=== PATIENT | female | born 1980 | race Caucasian/White ===

== ENCOUNTER 2021-01-01 23:39 | Emergency (ER) | payer OTHER, SELFPAY ==
[2021-01-01 23:39] VITALS: BP 136/105; PULSE 78; RESP 18; TEMP 36.8; O2SAT 97
[2021-01-02] MEDS: LIDO 1%/EPINEPHRINE 1:100,000 20 ML VIAL 3 ML INFILTRATE (00:10)
[2021-01-02] MEDS: TETANUS,DIPHTHERIA,AC PERTUSSIS ADULT 0.5 ML (ADACEL) (00:33)
[2021-01-02] MEDS: NEOMYCIN/POLYMYXIN/BACITRACIN OINTMENT PACKET 1 PACKET TOPICAL (00:35)
--- NOTE | 2021-01-02 00:38 | ED.WOUNDLAC ---
HPI - Wound/Laceration General Chief Complaint: Wound/Laceration Stated Complaint: Eye laceration Source: patient Mode of arrival: ambulatory Limitations: no limitations History of Present Illness HPI narrative: This young woman comes in after a fall at home. She has a laceration to her left upper eyelid 3cm long on the upper and lateral part of the eyelid. This happened just prior to arrival, she says from a fall. She denies loss of consciousness. Bleeding was initially severe from the wound, but brief, stopping relatively quickly after 5 minutes. Direct pressure helped stop the bleeding. She admits to some alcohol before the fall. No other signs or symptoms. Onset (ago): minute(s) Place: home Patient tetanus UTD: No Context: accidental Associated symptoms: none Related Data Home Medications Medication Instructions Recorded Confirmed citalopram 40 mg PO DAILY 01/02/21 01/02/21 Allergies Allergy/AdvReac Type Severity Reaction Status Date / Time No Known Allergies Allergy Verified 01/02/21 00:17 Review of Systems Constitutional: Constitutional: Reports no additional constitutional complaints Eyes: Eyes: Reports no additional eye complaints ENT: Reports system reviewed and no additional complaints, except as documented Cardiovascular: Cardiovascular: Reports no additional cardiovascular complaints Respiratory: Respiratory: Reports no additional respiratory complaints Gastrointestinal: Gastrointestinal: Reports no additional gastrointestinal complaints Genitourinary: Genitourinary: Reports no additional female genitourinary complaints Musculoskeletal: Musculoskeletal: Reports no additional musculoskeletal complaints Integumentary/Breasts: Skin/Breast: Reports system reviewed and no additional complaints, except as docu Neurologic: Reports system reviewed and no additional complaints, except as documented Psychiatric: Psychiatric: Reports no additional psychiatric complaints Endocrine: Endocrine: Reports no additional endocrine complaints Hematologic/Lymphatic: Hematologic/Lymphatic: Reports no additional hematologic/lymphatic complaints Allergic/Immunologic: Allergic/Immunologic: Reports no additional allergic/immunologic complaints [facility] Past Medical History Medical History (Updated 01/02/21 @ 02:13 by Rogerio Geronimo MD) Depression Surgical History Surgical History (Updated 01/02/21 @ 02:13 by Rogerio Geronimo MD) No significant past surgical history Family History Family History (Updated 01/02/21 @ 02:14 by Rogerio Geronimo MD) Other Family history non-contributory Social History Social History (Updated 01/02/21 @ 02:15 by Rogerio Geronimo MD) Smoking status: Current some day smoker Tobacco type: cigarettes Additional smoking assessment comments: minimal smoking when out with friends Alcohol intake: current Alcohol use details: minimal use when out with friends Living arrangements: with family Additional occupation/education comments: Nurse Gender identity (if verbalized by the patient): Female Sexual Orientation (if Verbalized by the Patient): Straight or Heterosexual Exam Const: General: no acute distress Orientation/consciousness: patient oriented x3 HENMT: Head: normal to inspection Eyes: Conjunctivae: conjunctivae normal Neck: Neck: normal visual inspection Chest: Chest palpation & inspection: normal inspection of the chest Resp: Effort & Inspection: normal respiratory effort Auscultation: clear to auscultation bilaterally Cardio: Rate: regular rate Rhythm: regular rhythm GI: GI Palp: Yes Soft to palpation (nontender) Skin: General skin exam: normal color Other: laceration to left lateral upper eyelid 3cm long. Wound was cleansed. Wound was infiltrated at edges with lidocaine 1% with epinephrine. Following this wound was closed with 7 4-0 nylon sutures with good approximation. Neuro: General: patient oriented x3 and moves
[2021-01-02 00:48] VITALS: BP 136/105
== END 2021-01-02 00:56 | disposition home or self-care (01) ==
PROVIDERS: Emergency Provider Emergency Medicine
DX: S01.112A Laceration without foreign body of left eyelid and periocular area, initial encounter (principal); W19.XXXA Unspecified fall, initial encounter
CPT/HCPCS: 90471; 90715; 99283

== ENCOUNTER 2021-10-20 00:56 | Emergency (ER) | payer OTHER, SELFPAY ==
[2021-10-20 01:00] VITALS: PULSE 90; RESP 20; TEMP 36.6; O2SAT 98
--- NOTE | 2021-10-20 01:06 | ED.WOUNDLAC ---
HPI - Wound/Laceration General Chief Complaint: Wound/Laceration Stated Complaint: FINGER INJURY Source: patient Mode of arrival: ambulatory Limitations: no limitations History of Present Illness HPI narrative: this is a 41-year-old female that presents after she picked up a razor and inadvertently cut her left index finger the distal tip causing an avulsion of her distal left finger tip, the patient did apply a bandage try to stop the bleeding but the bleeding was pretty perfuse. Otherwise she complains of a pain level that is about 8/10 with no numbness or tingling has good movement in her fingers. Onset (ago): hour(s) Extremity Location: Left: hand ( in avulsion of left index finger the distal tip) Place: home Patient tetanus UTD: Yes Context: accidental Associated symptoms: pain Related Data Home Medications Medication Instructions Recorded Confirmed citalopram 40 mg PO DAILY 01/02/21 10/20/21 Allergies Allergy/AdvReac Type Severity Reaction Status Date / Time No Known Allergies Allergy Verified 01/02/21 00:17 Review of Systems Review of Systems: All systems reviewed & are unremarkable except as noted in HPI and below PMFSH Past Medical History Medical History Depression Surgical History Surgical History No significant past surgical history Family History Family History Other Family history non-contributory Social History Social History Smoking status: Current some day smoker Tobacco type: cigarettes Additional smoking assessment comments: minimal smoking when out with friends Alcohol intake: current Alcohol use details: minimal use when out with friends Additional occupation/education comments: Nurse Gender identity (if verbalized by the patient): Female Sexual Orientation (if Verbalized by the Patient): Straight or Heterosexual Exam Const: General: no acute distress Orientation/consciousness: patient oriented x3 HENMT: Head: normal to inspection Eyes: Conjunctivae: conjunctivae normal Pupils: Equal, round and reactive pupils present Neck: Neck: normal visual inspection Chest: Chest palpation & inspection: normal inspection of the chest Cardio: Rate: regular rate Rhythm: regular rhythm GI: GI Palp: Yes Soft to palpation Percussion: Yes normal to percussion Urinary Catheter: Urinary Catheter: patent and draining Skin: General skin exam: normal color Other: Distal left index finger avulsion injury Neuro: General: patient oriented x3 Extrem: General: normal to inspection and no pedal edema Psych: Mental Status: mental status grossly normal Course Course Emergency Course: tourniquet was placed on the left index finger and wrapped with Surgicel that stop the bleeding, the patient complains intense pain and will use 1% lidocaine to block the nerve in the left index finger. Procedures Nerve Block Nerve Block 1: Nerve block date: 10/20/21 Time out performed: Yes Local Anesthetic: lidocaine 1% Amount of anesthesia used (mL): 5 Side: left Nerve Blocks: digital Intraoral Nerve Block: supraperiosteal Procedure Successful: Yes Patient Tolerated Procedure: well Complications: none Critical Care Time Critical Care Time Critical Care Time: No Discharge Plan Discharge Clinical Impression: Skin avulsion Patient Disposition: Home, Self-Care Condition: Stable Instructions: Antibiotic Form, Skin Avulsion (ED) Additional Instructions: Take medicine as prescribed and follow-up primary care physician if symptoms persist or worsen. change dressing every 48hours. Prescriptions: New tramadol [Ultram] 50 mg tablet 50 mg PO Q6H PRN (Reason: pain) Qty: 14 RF:
[2021-10-20 01:40] VITALS: PULSE 88; RESP 18; TEMP 36.6; O2SAT 100
[2021-10-20] MEDS: LIDOCAINE HCL 1% LOCAL INJ 20 ML VIAL (01:44)
--- NOTE | 2021-10-20 01:45 | PC.NURSE ---
0100 area cleaned soap and water. surgicel applied area would not stop bleeding. 0133 pressure dressing and splint applied (splint to keep from bumping). good pulse to left hand
== END 2021-10-20 01:51 | disposition home or self-care (01) ==
PROVIDERS: Emergency Provider Emergency Medicine; PCP Hospitalist
DX: S61.211A Laceration without foreign body of left index finger without damage to nail, initial encounter (principal); W45.8XXA Other foreign body or object entering through skin, initial encounter
CPT/HCPCS: 64450; 99283

== ENCOUNTER 2022-08-11 19:31 | Emergency (ER) | payer OTHER, SELFPAY ==
--- NOTE | ~2022-08-11 | XR_ITS ---
EXAM: XR shoulder LT min 2V DATE: 08/11/2022 20:57 HISTORY: left neck/shoulder/trapezius pain x1 week, NKI . COMPARISON: None available. FINDINGS: Normal mineralization. No fracture or dislocation. No lytic or blastic lesion. Joint space s are maintained. No erosion or periosteal change. Soft tissues within normal limits. IMPRESSION: No acute osseous finding the left shoulder. Reviewed, dictated and finalized at location K. [facility] [employer]
--- NOTE | ~2022-08-11 | CT_ITS ---
EXAMINATION: CT cervical spine wo con DATE: 08/11/2022 20:56 INDICATION: left neck/shoulder/trapezius pain x1 week, NKI TECHNIQUE: Computed tomography (CT) of the cervical spine was performed without intravenous contrast. Automated exposure control and iterative reconstruction technique were employed. The dose-length pro duct was 316.69 mGy-cm. COMPARISON: None. FINDINGS: Vertebral Body Alignment: Intact. Cervical spine straightening as can occur with muscle spasm and pos itioning. Craniocervical and atlantoaxial alignment: No significant degenerative change. Alignment intact. Osseous structures/fracture: No evidence of a lytic or blastic process in the visualized spine. No e vidence of acute fracture. . Cervical soft tissues: The paraspinal soft tissues planes are maintained. Biapical paraseptal air cys ts and scarring. Degenerative changes: No significant degenerative changes. IMPRESSION: No acute fracture or traumatic malalignment in the cervical spine Reviewed, dictated and finalized at location K. [facility] [employer] OPER[employer]
--- NOTE | ~2022-08-11 | XR_ITS ---
EXAMINATION: XR chest 2V Exam Date/Time: 08/11/2022 20:45 LOIN TRIMMER HISTORY: chronic cough 4 wks w/ left shoulder pain Comparison: None available. RESULT: Lines, tubes, and devices: None. Lungs and pleura: Clear. Cardiomediastinal silhouette: Unremarkable. Other: No acute osseous or upper abdominal finding. IMPRESSION: No acute cardiopulmonary process. Reviewed, dictated and finalized at location K. TRIMMER
[2022-08-11 19:38] VITALS: BP 133/94; PULSE 73; RESP 18; TEMP 36.5; O2SAT 100
[2022-08-11 19:54] LABS: Glucose Point of Care 63 mg/dl (65-105)
--- NOTE | 2022-08-11 20:16 | ED.GENADULT ---
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 Labs as sharp burning sensation that goes from her left side of her neck to her left arm aching and stabbing she rates it a 7/10. Taken Tylenol ibuprofen without much relief. Some old tramadol helped. Denies any weakness or numbness she says the pain is worse if she moves her neck to the right. One month ago go she had influenza A. Since she has had a persistent cough with clear to yellow sputum but denies shortness of breath, fever and chills. She has not had any previous neck or shoulder problems. She had her tubes removed and so does not think it is possible she could be . Related Data Home Medications Medication Instructions Recorded Confirmed citalopram 40 mg tablet 40 mg PO DAILY 01/02/21 08/11/22 Allergies Allergy/AdvReac Type Severity Reaction Status Date / Time No Known Allergies Allergy Verified 08/11/22 19:42 Review of Systems Constitutional: Constitutional: Reports as per HPI, Reports no additional constitutional complaints, Denies body ache(s), Denies chills, Denies fatigue, Denies fever(s), Denies headache(s) and Denies weakness ENT: Denies nasal congestion, Reports neck pain and Denies throat swelling Cardiovascular: Cardiovascular: Reports as per HPI, Denies chest pain and Denies dyspnea Respiratory: Respiratory: Reports as per HPI and Reports no additional respiratory complaints Gastrointestinal: Gastrointestinal: Denies as per HPI, Denies no additional gastrointestinal complaints, Denies diarrhea, Denies nausea and Denies vomiting Genitourinary: Genitourinary: Denies no additional female genitourinary complaints Musculoskeletal: Musculoskeletal: Reports no additional musculoskeletal complaints and Reports as per HPI Comments: Denies any left wrist elbow pain. The denies any increased pain with range of motion of her left shoulder. Integumentary/Breasts: Skin/Breast: Denies rash Neurologic: Reports as per HPI, Denies focal weakness, Denies numbness and Denies weakness PMFSH Past Medical History Medical History Depression Surgical History Surgical History No significant past surgical history Family History Family History Other Family history non-contributory Social History Social History Smoking status: Current some day smoker Tobacco type: cigarettes Additional smoking assessment comments: minimal smoking when out with friends Alcohol intake: current Alcohol use details: minimal use when out with friends Additional occupation/education comments: Nurse Gender identity (if verbalized by the patient): Female Sexual Orientation (if Verbalized by the Patient): Straight or Heterosexual Comments Occasionally she has a low blood sugar but no history of diabetes. Exam Narrative: White female she appears no apparent distress eyes conjunctiva pink sclera nonicteric oropharynx is clear with moist mucous membranes lungs are clear to auscultation heart is regular rate and rhythm without murmurs gallops or rubs. Neck is supple has full range of motion she has some tenderness of the left side of her neck when looking to the right. Shoulder she has some posterior shoulder tenderness and mostly to the trapezius on the left. Left shoulder has full range of motion there is no deltoid tenderness exam is normal below the left shoulde
[2022-08-11] MEDS: KETOROLAC 30 MG/ML VIAL (*BKC) IM (20:24)
[2022-08-11 22:00] VITALS: BP 122/90; PULSE 65; RESP 16; O2SAT 99
== END 2022-08-11 22:05 | disposition home or self-care (01) ==
PROVIDERS: Emergency Provider Emergency Medicine; PCP Hospitalist
DX: S46.912A Strain of unspecified muscle, fascia and tendon at shoulder and upper arm level, left arm, initial encounter (principal); S16.1XXA Strain of muscle, fascia and tendon at neck level, initial encounter; F32.A Depression, unspecified; F17.210 Nicotine dependence, cigarettes, uncomplicated; X58.XXXA Exposure to other specified factors, initial encounter; Z79.899 Other long term (current) drug therapy
CPT/HCPCS: 71046; 72125; 73030; 82948; 96372; 99284; J1885

== ENCOUNTER 2023-03-17 22:40 | Emergency (ER) | payer OTHER, SELFPAY ==
[2023-03-17 22:48] VITALS: BP 129/102; PULSE 98; RESP 18; TEMP 36.6; O2SAT 98
--- NOTE | 2023-03-17 23:00 | ECG_ITS ---
Measurements Intervals [place] Rate: 64 P: 63 NE: 205 QRS: 72 QRSD: 89 T: 49 QT: 410 QTc: 425 Interpretive Statements SINUS RHYTHM NORMAL ECG NO PREVIOUS ECG AVAILABLE FOR COMPARISON Electronically Signed On 03-18-2023 12:21:44 CDT by Kodi Trevino M.D.
[2023-03-17 23:17] LABS: Basophils Absolute Auto 0.03 K/mm3 (0.00-0.10); Basophils Percent Auto 0.6 % (0.0-1.0); Eosinophils Absolute Auto 0.07 K/mm3 (0.02-0.50); Eosinophils Percent Auto 1.4 % (1.0-6.0); Hematocrit 45.1 % (35.0-49.0); Hemoglobin 14.2 g/dL (12.0-15.0); Immature Granulocyte Absolute 0.01 K/mm3 (0.00-0.00); Immature Granulocyte Percent A 0.2 % (0.0-0.0); Lymphocytes Percent Auto 59.8 % (18.0-42.0); Mean Corpuscular HGB Conc 31.5 g/dL (32.0-36.0); Mean Corpuscular Hemoglobin 29.5 pg (27.0-31.0); Mean Corpuscular Volume 93.8 fL (78.0-102.0); Mean Platelet Volume 10.8 fl (9.2-11.8); Monocytes Absolute Auto 0.28 K/mm3 (0.10-0.90); Monocytes Percent Auto 5.4 % (2.0-11.0); Neutrophils Absolute Auto 1.7 K/mm3 (1.7-7.2); Neutrophils Percent Auto 32.6 % (50.0-70.0); Platelet Count Result 220 K/mm3 (150-420); Red Blood Count 4.81 M/mm3 (4.20-5.40); Red Cell Distribution Width 13.1 % (11.6-14.4); White Blood Count 5.2 K/mm3 (4.8-10.8)
--- NOTE | 2023-03-17 23:19 | ED.PSYCH ---
HPI - Psych General Chief Complaint: Psychiatric Symptoms <Rogerio Garnett MD - Last Filed: 03/20/23 11:28> Stated Complaint: depression <Rogerio Garnett MD - Last Filed: 03/20/23 11:28> Time Seen by Provider: 03/17/23 23:10 <Rogerio Garnett MD - Last Filed: 03/20/23 11:28> Source: patient and RN notes reviewed <Rogerio Garnett MD - Last Filed: 03/20/23 11:28> Mode of arrival: ambulatory <Rogerio Garnett MD - Last Filed: 03/20/23 11:28> Limitations: no limitations <Rogerio Garnett MD - Last Filed: 03/20/23 11:28> History of Present Illness HPI Narrative: Patient states she is feeling down and depressed. She feels like she is not in a good spot right now . She has stopped her Zoloft and trying to get on citalopram but she has not started the citalopram because it was just called in today. She thinks she needs an evaluation and another medication that might tide her over. She says that she is under stress from her job and also from her family. <Rogerio Garnett MD - Last Filed: 03/20/23 11:28> MD complaint: feels depressed <Rogerio Garnett MD - Last Filed: 03/20/23 11:28> Onset (ago): week(s) (1) <Rogerio Garnett MD - Last Filed: 03/20/23 11:28> Duration: constant and getting worse <Rogerio Garnett MD - Last Filed: 03/20/23 11:28> History of same: Yes <Rogerio Garnett MD - Last Filed: 03/20/23 11:28> Relieving factors: none <Rogerio Garnett MD - Last Filed: 03/20/23 11:28> Exacerbating factors: alcohol <Rogerio Garnett MD - Last Filed: 03/20/23 11:28> Context: recent alcohol abuse <Rogerio Garnett MD - Last Filed: 03/20/23 11:28> Associated psychiatric symptoms: depression <Rogerio Garnett MD - Last Filed: 03/20/23 11:28> Associated symptoms: denies other symptoms <Rogerio Garnett MD - Last Filed: 03/20/23 11:28> Treatments prior to arrival: none <Rogerio Garnett MD - Last Filed: 03/20/23 11:28> Details of plan: Patient states she has no plans of hurting herself this time. <Rogerio Garnett MD - Last Filed: 03/20/23 11:28> Related Data Home Medications: Home Medications Medication Instructions Recorded Confirmed citalopram 40 mg tablet 40 mg PO DAILY 01/02/21 03/17/23 alprazolam 0.5 mg tablet 0.5 mg PO Q4H PRN Anxiety 03/17/23 03/17/23 <Rogerio Garnett MD - Last Filed: 03/20/23 11:28> Allergies/Adverse Reactions: Allergies Allergy/AdvReac Type Severity Reaction Status Date / Time No Known Allergies Allergy Verified 08/11/22 19:42 <Rogerio Garnett MD - Last Filed: 03/20/23 11:28> Review of Systems Review of Systems: All systems reviewed & are unremarkable except as noted in HPI and below <Rogerio Garnett MD - Last Filed: 03/20/23 11:28> PMFSH Past Medical History Medical History: Medical History Depression <Rogerio Garnett MD - Last Filed: 03/20/23 11:28> Surgical History Surgical History: Surgical History No significant past surgical history <Rogerio Garnett MD - Last Filed: 03/20/23 11:28> Family History Family History: Family History Other Family history non-contributory <Rogerio Garnett MD - Last Filed: 03/20/23 11:28> Social History Social History: Social History Smoking status: Current some day smoker Tobacco type: cigarettes Additional smoking assessment comments: minimal smoking when out with friends Alcohol intake: current Alcohol use details: minimal use when out with friends Substance use type: does not use Living arrangements: with family Additional occupation/education comments: Nurse Gender identity (if verbalized by the patient): Female Sexual Orientation (if Verbalized by the Patient): Straight or He
--- NOTE | 2023-03-17 23:25 | PC.NURSE ---
present in room during exam
[2023-03-17 23:27] LABS: Appearance Urine Clear (Clear); Bilirubin Urine Negative (Negative); Blood Urine Negative (Negative); Color Urine Light Yellow (Yellow); Glucose Urine UA Negative (Negative); Ketones Urine Negative (Negative); Leukocyte Esterase Ur Negative LEU/UL (Negative); Nitrate Urine Negative (Negative); Protein Urine Negative (Negative); SPREG INTERNAL CONTROL Positive; Serum Qual hCG Negative; Specific Grav Ur <= 1.005 (1.010-1.020); Urobilinogen Urine 0.2 mg/dL (0.2-1.0)
[2023-03-17 23:36] LABS: Add Urine Microscopic? NO
[2023-03-17 23:47] LABS: Anion Gap 8 mmol/L (8-16); Bilirubin,Total 0.3 mg/dL (0.00-1.00); Blood Urea Nitrogen 5 mg/dL (7-18); Calcium 8.6 mg/dL (8.5-10.1); Carbon Dioxide 30 mmol/L (21-32); Chloride 107 mmol/L (98-108); Estimated CRCL calculation 84 ml/min; Estimated Glomerular Filt Rate > 60; Glucose 96 mg/dL (70-99); Osmolality Calculated 297 mOsm/kg (285-295); Potassium 3.9 mmol/L (3.5-5.1); Salicylate 1.7 mg/dL (2.8-20.0); Sodium 145 mmol/L (136-145)
[2023-03-17 23:58] LABS: Alanine Aminotransferase 17 U/L (14-59); Aspartate Amino Transferase 18 U/L (15-37); Total Protein 7.1 g/dL (6.4-8.2)
[2023-03-18 00:05] VITALS: BP 140/90; PULSE 78; RESP 20; O2SAT 96
[2023-03-18 00:13] LABS: SARS-CoV-2 RNA PCR Negative (Negative)
[2023-03-18 01:05] VITALS: BP 140/88; PULSE 90; RESP 20; TEMP 36.6; O2SAT 99
[2023-03-18 01:17] LABS: Alkaline Phosphatase 82 U/L (46-116); Ethanol 173 mg/dL (0-6)
[2023-03-18 01:19] LABS: Acetaminophen < 2 ug/mL (10-30)
[2023-03-18 01:27] LABS: Amphetamine Screen Urine Negative (Negative); Barbiturate Screen Urine Negative (Negative); Benzodiazepines Screen Urine Positive (Negative); Cannabinoid Screen Urine Negative (Negative); Cocaine Screen Urine Negative (Negative); Methadone Screen Urine Negative (Negative); Opiate Screen Urine Negative (Negative); Phencyclidine Screen Urine Negative (Negative)
[2023-03-18 02:06] VITALS: BP 137/62; PULSE 77; RESP 20; O2SAT 97
[2023-03-18 04:07] VITALS: BP 140/62; PULSE 66; RESP 20; TEMP 37; O2SAT 96
[2023-03-18 04:32] LABS: Ethanol 75 mg/dL (0-6)
[2023-03-18 07:05] VITALS: BP 126/70; PULSE 67; RESP 16; TEMP 36.8; O2SAT 100
[2023-03-18 08:18] VITALS: BP 149/98; PULSE 85; RESP 16; TEMP 36.6; O2SAT 100
== END 2023-03-18 08:22 | disposition home or self-care (01) ==
PROVIDERS: Emergency Medicine; Emergency Provider Internal Medicine Critical Care Medicine; PCP Hospitalist
DX: F33.1 Major depressive disorder, recurrent, moderate (principal); F17.210 Nicotine dependence, cigarettes, uncomplicated; Z79.899 Other long term (current) drug therapy; Z20.822 Contact with and (suspected) exposure to COVID-19
CPT/HCPCS: 36415; 80053; 80307; 81003; 84703; 85025; 87635; 93005; 99284

== ENCOUNTER 2023-09-17 11:45 | Emergency (ER) | payer OTHER, SELFPAY ==
[2023-09-17 11:45] VITALS: BP 122/93; BP 131/69; PULSE 100; PULSE 78; RESP 18; RESP 20; TEMP 36.6; O2SAT 98; O2SAT 99
--- NOTE | 2023-09-17 11:55 | ECG_ITS ---
Measurements Intervals [place] Rate: 102 P: 71 AL: 187 QRS: 87 QRSD: 85 T: 55 QT: 342 QTc: 446 Interpretive Statements SINUS TACHYCARDIA NONSPECIFIC T-WAVE ABNORMALITY ABNORMAL RHYTHM ECG COMPARED TO ECG 03/17/2023 23:09:32 SINUS TACHYCARDIA NOW PRESENT Electronically Signed On 09-17-2023 12:32:55 [employer] MILL WORKER by Alex Martin M.D.
[2023-09-17 12:13] LABS: Appearance Urine Clear (Clear); Basophils Absolute Auto 0.04 K/mm3 (0.00-0.10); Basophils Percent Auto 0.6 % (0.0-1.0); Bilirubin Urine Negative (Negative); Blood Urine Negative (Negative); Color Urine Light Yellow (Yellow); Eosinophils Absolute Auto 0.01 K/mm3 (0.02-0.50); Eosinophils Percent Auto 0.2 % (1.0-6.0); Glucose Urine UA Negative (Negative); Hematocrit 51.6 % (35.0-49.0); Hemoglobin 16.5 g/dL (12.0-15.0); Immature Granulocyte Absolute 0.01 K/mm3 (0.00-0.00); Immature Granulocyte Percent A 0.2 % (0.0-0.0); Ketones Urine Negative (Negative); Leukocyte Esterase Ur Negative LEU/UL (Negative); Lymphocytes Absolute Auto 2.74 K/mm3 (1.10-4.50); Lymphocytes Percent Auto 42.2 % (18.0-42.0); Mean Corpuscular Hemoglobin 28.7 pg (27.0-31.0); Mean Corpuscular Volume 89.9 fL (78.0-102.0); Mean Platelet Volume 10.6 fl (9.2-11.8); Monocytes Absolute Auto 0.35 K/mm3 (0.10-0.90); Monocytes Percent Auto 5.4 % (2.0-11.0); Neutrophils Absolute Auto 3.4 K/mm3 (1.7-7.2); Neutrophils Percent Auto 51.4 % (50.0-70.0); Nitrate Urine Negative (Negative); Platelet Count Result 215 K/mm3 (150-420); Protein Urine Negative (Negative); Red Blood Count 5.74 M/mm3 (4.20-5.40); Red Cell Distribution Width 13.6 % (11.6-14.4); Specific Grav Ur <= 1.005 (1.010-1.020); Urobilinogen Urine 0.2 mg/dL (0.2-1.0); White Blood Count 6.5 K/mm3 (4.8-10.8); pH Urine 5.5 (5.0-8.0)
[2023-09-17 12:22] LABS: Add Urine Microscopic? NO
[2023-09-17 12:24] LABS: Amphetamine Screen Urine Negative (Negative); Barbiturate Screen Urine Negative (Negative); Benzodiazepines Screen Urine Negative (Negative); Cannabinoid Screen Urine Negative (Negative); Cocaine Screen Urine Negative (Negative); Methadone Screen Urine Negative (Negative); Opiate Screen Urine Negative (Negative); Phencyclidine Screen Urine Negative (Negative)
[2023-09-17] MEDS: ALPRAZolam (*CRX) 0.5 MG TABLET PO ×2 (12:37→15:29)
[2023-09-17 12:39] LABS: Alanine Aminotransferase 34 U/L (14-59); Albumin Level 4.1 g/dL (3.4-5.0); Alkaline Phosphatase 92 U/L (46-116); Anion Gap 12 mmol/L (8-16); Aspartate Amino Transferase 24 U/L (15-37); Bilirubin,Total 0.4 mg/dL (0.00-1.00); Blood Urea Nitrogen 4 mg/dL (7-18); Calcium 8.6 mg/dL (8.5-10.1); Carbon Dioxide 27 mmol/L (21-32); Chloride 107 mmol/L (98-108); Estimated Glomerular Filt Rate > 60; Glucose 98 mg/dL (70-99); Osmolality Calculated 298 mOsm/kg (285-295); Potassium 3.2 mmol/L (3.5-5.1); Salicylate 1.4 mg/dL (2.8-20.0); Sodium 146 mmol/L (136-145); Thyroid Stimulating Hormone 1.23 uIU/mL (0.36-3.74); Total Protein 7.4 g/dL (6.4-8.2)
[2023-09-17 12:40] LABS: Acetaminophen < 2 ug/mL (10-30)
[2023-09-17 12:41] LABS: Ethanol 210 mg/dL (0-6)
--- NOTE | 2023-09-17 13:17 | ED.PSYCH ---
HPI - Psych General Chief Complaint: Psychiatric Symptoms Stated Complaint: psych Source: patient and EMS Mode of arrival: EMS Limitations: no limitations History of Present Illness HPI Narrative: this is a 43-year-old female with a history of depression and anxiety been overwhelmed with family work and has expressed suicidal ideation with no clear plan patient has a history of depression. Currently denies suicidal ideation although she feels extremely anxious did take some medication. There is currently no fever chills no shortness of breath no chest pain. complaint: feels depressed Onset (ago): hour(s) Duration: constant History of same: Yes Relieving factors: medication Exacerbating factors: other Context: recent alcohol abuse Associated psychiatric symptoms: depression Related Data Home Medications Medication Instructions Recorded Confirmed alprazolam 0.5 mg tablet 0.5 mg PO Q4H PRN Anxiety 03/17/23 09/17/23 Allergies Allergy/AdvReac Type Severity Reaction Status Date / Time No Known Allergies Allergy Verified 08/11/22 19:42 Review of Systems Review of Systems: All systems reviewed & are unremarkable except as noted in HPI and below PMFSH Past Medical History Medical History Depression Surgical History Surgical History No significant past surgical history Family History Family History Other Family history non-contributory Social History Social History Smoking status: Current some day smoker Tobacco type: cigarettes Additional smoking assessment comments: minimal smoking when out with friends Alcohol intake: current Alcohol use details: minimal use when out with friends Substance use type: does not use Living arrangements: with family Additional occupation/education comments: Nurse Gender identity (if verbalized by the patient): Female Sexual Orientation (if Verbalized by the Patient): Straight or Heterosexual Exam Const: General: healthy appearing and no acute distress Nutritional Appearance: well nourished Orientation/consciousness: patient oriented x3 Limitations: no limitations Chest: Chest palpation & inspection: normal inspection of the chest Resp: Effort & Inspection: normal respiratory effort Auscultation: clear to auscultation bilaterally Cardio: Rate: regular rate Rhythm: regular rhythm GI: GI Palp: Yes Soft to palpation Auscultation: normal bowel sounds Neuro: General: patient oriented x3, moves all extremities and no meningeal signs Extrem: General: normal to inspection Psych: Affect: Sad affect present Course Course Emergency Course: Patient currently not suicidal with no plan. Labs reviewed patient did receive alprazolam and anxiety has mental health here and evaluated patient, patient has an alcohol level of 210 and after further evaluation feel that mental health needs re-evaluate after levels are within normal range. Alcohol level down to 70 and mental health came out to re-evaluate and has a safety plan in place and patient scheduled for a outpatient follow-up with some mental health. Vital Signs Vital signs: Vital Signs Temperature 36.6 C 09/17/23 11:45 Pulse Rate 100 09/17/23 11:45 Respiratory Rate 18 09/17/23 11:45 Blood Pressure 122/93 H 09/17/23 11:45 Pulse Oximetry 98 09/17/23 11:45 Oxygen Delivery Room Air 09/17/23 11:45 Temperature 36.2 C L 09/17/23 17:44 Pulse Rate 65 09/17/23 17:44 Respiratory Rate 18 09/17/23 17:44 Blood Pressure 119/65 09/17/23 17:44 Pulse Oximetry 98 09/17/23 17:44 Oxygen Delivery Room Air 09/17/23 17:44 MDM - Psych Lab Data 09/17/23 12:09 09/17/23 12:09 Labs: Lab Results 09/17/23 09/17/2309/03
[2023-09-17 13:54] VITALS: BP 121/64; PULSE 69; RESP 18; TEMP 36.7; O2SAT 99
[2023-09-17 14:10] LABS: Ethanol 164 mg/dL (0-6)
--- NOTE | 2023-09-17 14:21 | PC.NURSE ---
Pt states, i am ready to go home. I don't want any of those medications. Pt informed by this RN and GARFIELD Sanchez of her ETOH level. Pt provided more PO fluids. Pt educated on the need for another safety contract once her ETOH level has gone down to normal level.
--- NOTE | 2023-09-17 14:28 | PC.NURSE ---
Pt became angry stating she wanted to leave. Pt informed she needed to stay. Pt refused to stay and wait for another blood ETOH level to be drawn. Pt refused to stay in her room and walked out of the ER. Pt was asked to stay and told the policy and refused and walked out of the ER. PD notified of the patient.
--- NOTE | 2023-09-17 15:07 | PC.NURSE ---
Pt brought back to ED by Kenroy CASTREJON. Pt angry on arrival. Pt states, draw my fucking blood now and get the fuck out of my room. Pt then grabbed the curtain in the room and shut it violently. Pt informed that this RN is trying to keep her safe and she states, fuck you. Pt sitting on the stretcher.
[2023-09-17 15:13] VITALS: BP 128/101; PULSE 118; RESP 18; TEMP 36.6
--- NOTE | 2023-09-17 16:20 | PC.NURSE ---
PT resting on the stretcher with her phone. Pt aware her blood redraw will be around 1700
[2023-09-17 17:11] LABS: Ethanol 70 mg/dL (0-6)
[2023-09-17 17:44] VITALS: BP 119/65; PULSE 65; RESP 18; TEMP 36.2; O2SAT 98
--- NOTE | 2023-09-17 19:10 | PC.NURSE ---
PT IS SITTING ON STRETCHER WATCHING TV AT THIS TIME. PT DENIES ANY SUICIDAL THOUGHTS OR IDEATIONS AT THIS TIME. PT REPORTS SHE DOES NOT WANT TO HARM HERSELF. PT REQUESTS HER PHONE TO BE PLACED ON SEWER HEAD, THIS IS DONE. [facility]. PT IS COOPERATIVE, BECOMING AGITATED, REPORTS SHE WAS TOLD [employer] WOULD BE HERE 2 HOURS AGO. PT DECLINES DINNER TRAY. PT DENIES ANY NEEDS OR COMPLAINTS AT THIS TIME. WILL CONTINUE TO MONITOR.
--- NOTE | 2023-09-17 20:04 | PC.NURSE ---
[facility] HAS ARRIVED TO EVALUATE PT AT THIS TIME.
[2023-09-17 20:16] VITALS: BP 116/80; PULSE 88; RESP 18; TEMP 36.7; O2SAT 98
--- NOTE | 2023-09-17 20:22 | PC.NURSE ---
PER ALFREDO GUERRERO AND LUDWIN, PT IS TO BE DC HOME ON SAFETY PLAN. PT IS AGREEABLE TO THIS. PT DENIES ANY SI OR HI AT THIS TIME. PT IS CALM AND COOPERATIVE.
== END 2023-09-17 20:16 | disposition home or self-care (01) ==
PROVIDERS: Emergency Provider Emergency Medicine; PCP Hospitalist
DX: F32.89 Other specified depressive episodes (principal); F17.210 Nicotine dependence, cigarettes, uncomplicated; Z79.899 Other long term (current) drug therapy
CPT/HCPCS: 36415; 80053; 80307; 81003; 84443; 85025; 93005; 99284; A9270